=== PATIENT | female | born 1990 | race Caucasian/White ===

== ENCOUNTER 2016-06-04 12:05 | Emergency (ER) | payer BC ==
[2016-06-04 15:02] LABS: HEMOGLOBIN 12.5 gm/dl (12.3-15.3); RED BLOOD COUNT 4.74 M/UL (4.00-5.10); WHITE BLOOD COUNT 9.3 K/UL (4.5-11.0)
[2016-06-04 15:18] LABS: BUN/CREATININE RATIO 16 (0-10)
[2016-07-02] MEDS ORDERED: PROVERA10 MG PO ×2 (09:05→13:08)
[2016-07-02] MEDS ORDERED: GERITOL COMPLE1 EACH PO (09:06)
[2016-07-02] MEDS ORDERED: BENADRYL 25MG C25 MG PO (09:09)
[2016-07-02] MEDS ORDERED: IRON PO (09:09)
[2016-07-02] MEDS ORDERED: NEXIUM20 MG PO (09:10)
[2016-07-02] MEDS ORDERED: NORCO 5-325 TA1 EACH PO (13:09)
[2016-07-02] MEDS ORDERED: IBUPROFEN600 MG PO (13:09)
[2016-07-02] MEDS ORDERED: COLACE 100MG C100 MG PO (13:09)
== END 2016-06-04 15:49 | disposition home or self-care (01) ==
LOC: ER1 12:05
PROVIDERS: Nurse Practitioner Family
DX: N93.9 Abnormal uterine and vaginal bleeding, unspecified (principal)
CPT/HCPCS: 80048; 84703; 85025; 99283

== ENCOUNTER → 2016-06-25 | Outpatient (CLI) | payer BC ==
[~2016-06-25] MED LIST: BENADRYL 25MG C25 MG PO; COLACE 100MG C100 MG PO; GERITOL COMPLE1 EACH PO; IBUPROFEN600 MG PO; IRON PO; NEXIUM20 MG PO; NORCO 5-325 TA1 EACH PO; PROVERA10 MG PO
[2016-06-25 09:05] LABS: HEMOGLOBIN 12.1 gm/dl (12.3-15.3); RED BLOOD COUNT 4.68 M/UL (4.00-5.10); WHITE BLOOD COUNT 7.8 K/UL (4.5-11.0)
== END ==
LOC: OPSV2 08:00
PROVIDERS: Obstetrics & Gynecology
DX: Z01.812 Encounter for preprocedural laboratory examination (principal); N93.8 Other specified abnormal uterine and vaginal bleeding; Z88.0 Allergy status to penicillin
CPT/HCPCS: 36415; 81001; 85025

== ENCOUNTER → 2016-07-02 | Day surgery (SDC) | payer BC ==
[~2016-07-02] VITALS: Ht 157.5 cm; Wt 115.7 kg
== END | disposition home or self-care (01) ==
LOC: OR 08:20
PROVIDERS: Obstetrics & Gynecology
PROC: 0UDB8ZZ Extraction of Endometrium, Via Natural or Artificial Opening Endoscopic (ICD-10-PCS; principal; 2016-07-02 13:00)
DX: N93.8 Other specified abnormal uterine and vaginal bleeding (principal); K21.9 Gastro-esophageal reflux disease without esophagitis; D64.9 Anemia, unspecified; E66.9 Obesity, unspecified; Z68.42 Body mass index [BMI] 45.0-49.9, adult; Z87.09 Personal history of other diseases of the respiratory system; Z88.0 Allergy status to penicillin; Z79.899 Other long term (current) drug therapy; Z83.3 Family history of diabetes mellitus; Z82.49 Family history of ischemic heart disease and other diseases of the circulatory system
CPT/HCPCS: 84703; J1885; J2250; J2405; J2795; J7120

== ENCOUNTER 2020-05-11 19:44 | Emergency (ER) | payer OTHER ==
[~2020-05-11 19:44] MED LIST changes: +CLARITIN10 M2 PO
[2020-05-11 21:04] LABS: HEMOGLOBIN 13.6 gm/dl (12.3-15.3); RED BLOOD COUNT 4.8 M/UL (4.00-5.10); WHITE BLOOD COUNT 11.7 K/UL (4.5-11.0)
[2020-05-11 21:19] LABS: BUN/CREATININE RATIO 20 (0-10)
[2020-05-11] MEDS ORDERED: ADULT GLYCERIN1 EACH PR (22:29)
[2020-05-11] MEDS ORDERED: COLACE 100MG C100 MG PO (22:29)
== END 2020-05-11 23:13 | disposition home or self-care (01) ==
LOC: ER1 19:44
PROVIDERS: Physician Assistant
DX: O99.612 Diseases of the digestive system complicating pregnancy, second trimester (principal); K62.9 Disease of anus and rectum, unspecified; Z88.0 Allergy status to penicillin; Z79.82 Long term (current) use of aspirin
CPT/HCPCS: 80053; 81001; 85025; 99284

== ENCOUNTER → 2020-08-18 | Outpatient (CLI) | payer OTHER ==
[~2020-08-18] MED LIST changes: +ADULT GLYCERIN1 EACH PR
== END ==
LOC: GENOP 17:39
DX: O9A.213 Injury, poisoning and certain other consequences of external causes complicating pregnancy, third trimester (principal); S30.1XXA Contusion of abdominal wall, initial encounter; O36.8130 Decreased fetal movements, third trimester, not applicable or unspecified; O99.843 Bariatric surgery status complicating pregnancy, third trimester; O99.343 Other mental disorders complicating pregnancy, third trimester; F32.9 Major depressive disorder, single episode, unspecified; F42.9 Obsessive-compulsive disorder, unspecified; Z88.1 Allergy status to other antibiotic agents; Z79.82 Long term (current) use of aspirin; Z79.899 Other long term (current) drug therapy; Z3A.31 31 weeks gestation of pregnancy; W01.190A Fall on same level from slipping, tripping and stumbling with subsequent striking against furniture, initial encounter
CPT/HCPCS: 59025; 81001; 82731; 96360; 96361; G0463; J1160; J7120

== ENCOUNTER 2020-09-08 12:19 | Outpatient (CLI) | payer OTHER | END 2020-09-08 13:35 | disposition home or self-care (01) | LOC: GENOP 12:19 | DX: O47.03 False labor before 37 completed weeks of gestation, third trimester (principal); O99.891 Other specified diseases and conditions complicating pregnancy; N89.8 Other specified noninflammatory disorders of vagina; O36.8130 Decreased fetal movements, third trimester, not applicable or unspecified; O99.843 Bariatric surgery status complicating pregnancy, third trimester; O99.343 Other mental disorders complicating pregnancy, third trimester; F42.9 Obsessive-compulsive disorder, unspecified; F41.9 Anxiety disorder, unspecified; F32.9 Major depressive disorder, single episode, unspecified; O99.213 Obesity complicating pregnancy, third trimester; E66.9 Obesity, unspecified; O99.013 Anemia complicating pregnancy, third trimester; D64.9 Anemia, unspecified; Z88.1 Allergy status to other antibiotic agents; Z79.899 Other long term (current) drug therapy; Z3A.34 34 weeks gestation of pregnancy | CPT/HCPCS: 81001; 83518; G0463 ==

== ENCOUNTER 2020-09-27 13:07 | Outpatient (CLI) | payer OTHER | END 2020-09-27 15:52 | disposition home or self-care (01) | LOC: GENOP 13:07 | DX: O62.9 Abnormality of forces of labor, unspecified (principal); Z3A.00 Weeks of gestation of pregnancy not specified | CPT/HCPCS: 81001; G0463 ==

== ENCOUNTER 2020-10-09 16:41 | Inpatient (IN) | payer OTHER ==
[~2020-10-09] VITALS: Ht 157.5 cm; Wt 103.4 kg
[2020-10-09 17:34] LABS: HEMOGLOBIN 12.5 gm/dl (12.3-15.3); RED BLOOD COUNT 4.77 M/UL (4.00-5.10); WHITE BLOOD COUNT 11.2 K/UL (4.5-11.0)
[2020-10-09] MEDS ORDERED: IRON325 M1 PO (22:10)
[2020-10-09] MEDS ORDERED: ZOLOFT50 MG PO (22:11)
[2020-10-09] MEDS ORDERED: CALCIUM500 MG PO (22:12)
[2020-10-10] MEDS ORDERED: IBUPROFEN600 MG PO (19:08)
[2020-10-10] MEDS ORDERED: DOCUSATE SODIU100 MG PO (19:08)
[2020-10-11 04:40] LABS: HEMOGLOBIN 10.9 gm/dl (12.3-15.3)
== END 2020-10-12 17:57 | disposition home or self-care (01) | DRG 807 ==
LOC: GENOP 16:41 → OB 17:10
PROVIDERS: Obstetrics & Gynecology; ADMIT Obstetrics & Gynecology
PROC: 10E0XZZ Delivery of Products of Conception, External Approach (ICD-10-PCS; principal; 2020-10-10)
PROC: 0KQM0ZZ Repair Perineum Muscle, Open Approach (ICD-10-PCS; 2020-10-10)
PROC: 10907ZC Drainage of Amniotic Fluid, Therapeutic from Products of Conception, Via Natural or Artificial Opening (ICD-10-PCS; 2020-10-10)
PROC: 0U7C7ZZ Dilation of Cervix, Via Natural or Artificial Opening (ICD-10-PCS; 2020-10-10)
PROC: 4A1HXCZ Monitoring of Products of Conception, Cardiac Rate, External Approach (ICD-10-PCS; 2020-10-10)
DX: O99.02 Anemia complicating childbirth (principal); Z37.0 Single live birth; O99.344 Other mental disorders complicating childbirth; F99 Mental disorder, not otherwise specified; O99.844 Bariatric surgery status complicating childbirth; F42.9 Obsessive-compulsive disorder, unspecified; Z3A.38 38 weeks gestation of pregnancy; Z83.3 Family history of diabetes mellitus; Z82.49 Family history of ischemic heart disease and other diseases of the circulatory system; Z82.5 Family history of asthma and other chronic lower respiratory diseases; Z88.1 Allergy status to other antibiotic agents; O70.1 Second degree perineal laceration during delivery; O62.2 Other uterine inertia
CPT/HCPCS: 36415; 51702; 81001; 82800; 85014; 85018; 85025; 86850; 86900; 86901; 90471; 90715; J2210; J2590; J3010; J7120; U0002